=== PATIENT | male | born 1990 | race Caucasian/White ===

== ENCOUNTER 2016-10-18 14:58 | Emergency (ER) | payer SELFPAY ==
[2016-10-18] MEDS ORDERED: ONDANSETRON 4 MG/2 ML VIAL ONE (15:22)
[2016-10-18] MEDS: ONDANSETRON 4 MG/2 ML VIAL IVP ONE (15:28)
[2016-10-18] MEDS: NS 1,000 ML IV ONE (15:28)
[2016-10-18 15:29] LABS: ADD DIFF? NO; ADD MORPH? NO; ADD SCAN? NO; ATYPICAL LYMPHOCYTE FLAG 0 (0-99); FRAGMENT RBC FLAG 0 (0-99); HEMATOCRIT 51.2 % (40.0-51.0); HEMOGLOBIN 17.7 g/dL (13.7-17.5); LEFT SHIFT FLG 0 (0-99); LIPEMIA HEMOLYSIS FLAG 90 (0-99); MEAN CELL HEMOGLOBIN 31.9 pg (27.9-34.1); MEAN CELL HEMOGLOBIN CONCENTR. 34.6 g/dL (32.4-36.7); MEAN CELL VOLUME 92.3 fL (81.5-99.8); MEAN PLATELET VOLUME 9.4 fL (8.7-11.7); PLATELET CLUMPS FLAG 0 (0-99); PLATELET COUNT 277 10^3/uL (150-400); RED BLOOD CELL COUNT 5.55 10^6/uL (4.40-6.38); RED CELL DISTRIBUTION WIDTH 13.3 % (11.5-15.2)
--- NOTE | 2016-10-18 15:34 | EDPHY ---
H & P Time Seen by Provider: 10/18/16 15:15 HPI/ROS: Chief complaint. Nausea vomiting diarrhea HPI. 26-year-old male diarrhea off and on for 10 days. No recent travel. Occasional nausea vomiting. Occasional epigastric pain when he throws up. No radiation of his discomfort. No chest discomfort shortness of breath. No fever. History stomach problems ROS Constitutional. no fever/chills, no weakness Eyes. no problems with vision ENT. no sore throat, no nasal drainage Cardiovascular. no chest pain Respiratory. no shortness of breath, no cough Abdominal. Occasional abdominal pain with nausea vomiting and diarrhea . no problems urinating MS. no calf pain/swelling, no neck/back pain, no joint pain Skin. no rash Lymph. no swollen glands Neuro. no headache, no dizziness, no difficulty walking or with speech Past Medical/Surgical History: Healthy Social History: Single, daily smoker, no alcohol Smoking Status: Heavy smoker Physical Exam: General Appearance: Alert well-developed male mild distress vital signs show initial heart rate 120 Eyes: Pupils equal and round no pallor or injection. ENT, Mouth: Mucous membranes are moist. Respiratory: There are no retractions, lungs are clear to auscultation. Cardiovascular: Regular rate and rhythm. Gastrointestinal: Abdomen is soft and nontender, no masses, bowel sounds normal. Neurological: Awake and alert, sensory and motor exams grossly normal. Skin: Warm and dry, no rashes. Musculoskeletal: Neck is supple nontender. Extremities symmetrical, full range of motion. Psychiatric: Patient is oriented X 3, there is no agitation. Constitutional: Initial Vital Signs Temperature (C) 36.8 C 10/18/16 15:06 Heart Rate 120 H 10/18/16 15:06 Respiratory Rate 18 10/18/16 15:06 Blood Pressure 132/86 H 10/18/16 15:06 O2 Sat (%) 98 10/18/16 15:06 O2 Delivery Mode Room Air Allergies/Adverse Reactions: No Known Allergies Allergy (Unverified 10/18/16 15:11) Home Medications: Medication Instructions Recorded NK [No Known Home Meds] 10/18/16 Medical Decision Making Procedures: IV normal saline. Imodium by mouth ED Course/Re-evaluation: Re-evaluation at 4:15 p.m.. Patient is stable. He feels he needs to be discharged as he has an important phone call to make. His labs are normal. He has had no vomiting or diarrhea in the emergency department. Patient and I discussed criteria for return importance of follow-up and further evaluation. He expresses understanding and agreement Differential Diagnosis: Likely gastroenteritis. I have considered infectious causes of diarrhea. No evidence for acute abdomen or pancreatitis - Data Points Laboratory Results: Laboratory Results 10/18/16 15:19 10/18/16 15:19 10/18/16 10/18/16 15:19 15:19 WBC 10.07 10^3/uL H 10^3/uL (3.80-9.50) RBC 5.55 10^6/uL 10^6/uL (4.40-6.38) Hgb 17.7 g/dL H g/dL (13.7-17.5) Hct 51.2 % H % (40.0-51.0) MCV 92.3 fL fL (81.5-99.8) MCH 31.9 pg pg (27.9-34.1) MCHC 34.6 g/dL g/dL (32.4-36.7) RDW 13.3 % % (11.5-15.2) Plt Count 277 10^3/uL 10^3/uL (150-400) MPV 9.4 fL fL (8.7-11.7) Neut % (Auto) 64.5 % % (39.3-74.2) Lymph % (Auto) 25.2 % % (15.0-45.0) [place] % (Auto) 8.2 % % (4.5-13.0) Eos % (Auto) 0.7 % % (0.6-7.6) Baso % (Auto) 0.4 % % (0.3-1.7) Nucleat RBC Rel Count 0.0 % % (0.0-0.2) Absolute Neuts (auto) 6.49 10^3/uL 10^3/uL (1.70-6.50) Absolute Lymphs (auto) 2.54 10^3/uL 10^3/uL (1.00-3.00) Absolute Monos (auto) 0.83 10^3/uL H 10^3/uL (0.30-0.80) Absolute Eos (auto) 0.07 10^3/uL 10^3/uL (0.03-0.40) Absolute Basos (auto) 0.04 10^3/uL 10^3/uL (0.02-0.10) Absolute Nucleated RBC 0.00 10^3/uL 10^3/uL (0-0.01) Immature Gran % 1.0 % % (0.0-1.1) Immature Gran # 0.10 10^3/uL 10^3/uL (0.00-0.10) Sodium 140 mEq/L mEq/L (134-144) Potassium 4.4 mEq/L mEq/L (3.5-5.2) Chloride 101 mEq/L mEq/L (97-110) Carbon Dioxide 27 mEq/l mEq/l (22-31) Anion Gap 12 mEq/L mEq/L (8-16) BUN 21 mg/dL mg/dL (7-23) Creatinine 0.9 mg/dL mg/dL (0.7-1.3) Estimated GFR > 60 Glucose 76 mg/dL mg/dL (70-100) Calcium 10.3 mg/dL mg/dL (8.5-10.4) Lipase 81.0 IU/L IU/L (23-300) Medications Given: Discontinued Medications Sodium Chloride (Ns) 1,000 mls @ 0 mls/hr IV ONCE ONE PRN Reason: Wide Open Stop: 10/18/16 15:24 Last Admin: 10/18/16 15:28 Dose: 1,000 mls Loperamide HCl (Imodium) 4 mg PO EDNOW ONE Stop: 10/18/16 15:45 Last Admin: 10/18/16 15:48 Dose: 4 mg Ondansetron HCl (Zofran) 4 mg IVP EDNOW ONE Stop: 10/18/16 15:24 Last Admin: 10/18/16 15:28 Dose: 4 mg Departure - Departure Disposition: Home, Routine, Self-Care Clinical Impression: Diarrhea Qualifiers: Diarrhea type: unspecified type Qualified Code(s): R19.7 - Diarrhea, unspecified Condition: Good Instructions: Loperamide (By mouth), Acute Diarrhea (ED) Additional Instructions: Drink plenty of fluids and stay hydrated. Imodium (loperamide) may be purchased at the grocery store without prescription an works well for diarrhea. Return for worsening symptoms. Recheck in 3-4 days if not improving Referrals: NONE *PRIMARY CARE P,. [Primary Care Provider] - As per Instructions [facility] [Outside] - 3-4 days, if not improved
[2016-10-18] MEDS: LOPERAMIDE HCL 2 MG CAP PO ONE (15:48)
[2016-10-18 15:55] LABS: ANION GAP 12 mEq/L (8-16); CALCIUM 10.3 mg/dL (8.5-10.4); CARBON DIOXIDE 27 mEq/l (22-31); CHLORIDE 101 mEq/L (97-110); CREATININE 0.9 mg/dL (0.7-1.3); GLOMERULAR FILTRATION RATE > 60; GLUCOSE 76 mg/dL (70-100); POTASSIUM 4.4 mEq/L (3.5-5.2); SODIUM 140 mEq/L (134-144)
[2016-10-18 16:18] VITALS: BP 132/94; PULSE 97; RESP 16; TEMP 98.1; O2SAT 96
== END 2016-10-18 16:23 | disposition home or self-care (01) ==
DX: R19.7 Diarrhea, unspecified (principal); F17.200 Nicotine dependence, unspecified, uncomplicated
CPT/HCPCS: 96374; J2405

== ENCOUNTER 2016-10-23 20:43 | Emergency (ER) | payer SELFPAY ==
[2016-10-23 20:51] VITALS: O2SAT 95
[2016-10-23] MEDS ORDERED: LIDOCAINE 2% VISCOUS 15 ML UDCUP PO ONE (21:05)
[2016-10-23] MEDS ORDERED: MAG HYDROX/AL HYDROX/SIMETH 30 ML UDCUP PO ONE (21:05)
[2016-10-23] MEDS ORDERED: HYOSCYAMINE SULFATE 0.125 MG TAB PO ONE (21:05)
[2016-10-23] MEDS ORDERED: FAMOTIDINE 20 MG TAB PO ONE (21:05)
--- NOTE | 2016-10-23 21:06 | EDPHY ---
H & P Stated Complaint: N and int. x1 week, Hx of GERD as a kid, c/o abd "burning" Time Seen by Provider: 10/23/16 20:53 HPI/ROS: CHIEF COMPLAINT: Burn HISTORY OF PRESENT ILLNESS: The patient is a 26-year-old man who comes to the emergency department complaining of epigastric burning. He states that it feels like heartburn but that he occasionally vomits. He has also had intermittent diarrhea over the last 2 weeks. He was seen here 5 days ago with similar symptoms. He had lab work that was unremarkable and he felt better after Imodium and Zofran. he states that he Does still occasionally have diarrhea but that is not his main concern. His symptoms are worse after eating. No blood in his vomit or stool. REVIEW OF SYSTEMS: Constitutional: denies: chills, fever, recent illness, recent injury EENTM: denies: blurred vision, double vision, nose congestion Respiratory: denies: cough, shortness of breath Cardiac: denies: chest pain, irregular heart rate, lightheadedness, palpitations Gastrointestinal/Abdominal: See HPI Genitourinary: denies: dysuria, frequency, hematuria, pain Musculoskeletal: denies: joint pain, muscle pain Skin: denies: lesions, rash, jaundice, bruising Neurological: denies: headache, numbness, paresthesia, tingling, dizziness, weakness Hematologic/Lymphatic: denies: blood clots, easy bleeding, easy bruising Immunologic/allergic: denies: HIV/AIDS, transplant EXAM: GENERAL: Well-appearing, well-nourished and in no acute distress. HEAD: Atraumatic, normocephalic. EYES: Pupils equal round and reactive to light, extraocular movements intact, sclera anicteric, conjunctiva are normal. ENT: TMs normal, nares patent, oropharynx clear without exudates. Moist mucous membranes. NECK: Normal range of motion, supple without lymphadenopathy or JVD. LUNGS: Breath sounds clear to auscultation bilaterally and equal. No wheezes rales or rhonchi. HEART: Regular rate and rhythm without murmurs, rubs or gallops. ABDOMEN: Moderate epigastric pain, no tenderness, he states that palpation makes him feel like he needs to vomit. BACK: No CVA tenderness, no spinal tenderness, step-offs or deformities EXTREMITIES: Normal range of motion, no pitting or edema. No clubbing or cyanosis. NEUROLOGICAL: Cranial nerves II through XII grossly intact. Normal speech, normal gait. 5/5 strength, normal movement in all extremities, normal sensation PSYCH: Normal mood, normal affect. SKIN: Warm, dry, normal turgor, no visible rashes or lesions. Source: Patient Exam Limitations: No limitations - Personal History Current Tetanus/Diphtheria Vaccine: Yes Current Tetanus Diphtheria and Acellular Pertussis (TDAP): Yes Tetanus Vaccine Date: 2015 - Medical/Surgical History Hx Asthma: No Hx Chronic Respiratory Disease: No Hx Diabetes: No Hx Cardiac Disease: No Hx Renal Disease: No Hx Cirrhosis: No Hx Alcoholism: No Hx HIV/AIDS: No Hx Splenectomy or Spleen Trauma: No Other PMH: GERD - Family History Significant Family History: No pertinent family hx - Social History Smoking Status: Heavy smoker Alcohol Use: Sober Drug Use: None Constitutional: Initial Vital Signs Heart Rate 111 H 10/23/16 20:49 Respiratory Rate 16 10/23/16 20:49 Blood Pressure 159/102 H 10/23/16 20:49 O2 Sat (%) 95 10/23/16 20:49 O2 Delivery Mode Room Air Allergies/Adverse Reactions: No Known Allergies Allergy (Unverified 10/18/16 15:11) Home Medications: Medication Instructions Recorded Famotidine [Pepcid 20 MG (OTC)] 20 mg PO BID #30 tab 10/23/16 Medical Decision Making ED Course/Re-evaluation: We discussed options for workup. The patient requests not to perform any lab work or imaging studies initially but to try treating him for heartburn and see if this improves his symptoms. He is concerned about cost. 9:45 p.m. the patient feels completely better after GI cocktail and Pepcid. He is asking for prescription of Pepcid. Recommended he take antacids as needed for acute symptoms. He agrees with this plan and declines further workup or testing. Have him follow up with his PCP. Differential Diagnosis: Partial list of the Differential diagnosis considered include but were not limited to; peptic ulcer disease, GERD and although unlikely based on the history and physical exam, I also considered perforation, biliary disease, pancreatic disease, appendicitis. I discussed these differential diagnoses and the plan with the patient as well as the usual and expected course. The patient understands that the diagnosis is provisional and that in medicine we are not always correct and that further workup is often warranted. Usual and customary warnings were given. All of the patient's questions were answered. The patient was instructed to return to the emergency department should the symptoms at all worsen or return, otherwise to followup with the physician as we discussed. - Data Points Medications Given: Discontinued Medications Al Hydroxide/Mg Hydroxide (Maalox Susp) 30 ml PO ONCE ONE Stop: 10/23/16 21:06 Last Admin: 10/23/16 21:14 Dose: 30 ml Famotidine (Pepcid) 20 mg PO EDNOW ONE Stop: 10/23/16 21:06 Last Admin: 10/23/16 21:13 Dose: 20 mg Hyoscyamine Sulfate (Levsin, Hyomax-Sl) 0.25 mg PO ONCE ONE Stop: 10/23/16 21:06 Last Admin: 10/23/16 21:13 Dose: 0.25 mg Lidocaine (Lidocaine 2% Viscous) 15 ml PO ONCE ONE Stop: 10/23/16 21:06 Last Admin: 10/23/16 21:14 Dose: 15 ml Departure - Departure Disposition: Home, Routine, Self-Care Clinical Impression: GERD (gastroesophageal reflux disease) Qualifiers: Esophagitis presence: esophagitis presence not specified Qualified Code(s): K21.9 - Gastro-esophageal reflux disease without esophagitis Condition: Good Instructions: Gastroesophageal Reflux Disease (ED) Referrals: Jc George MD [Medical Doctor] - As per Instructions Prescriptions: Famotidine [Pepcid 20 MG (OTC)] 20 mg PO BID #30 tab
[2016-10-23 22:03] VITALS: BP 146/87; PULSE 90; RESP 18; TEMP 97.9
== END 2016-10-23 22:04 | disposition home or self-care (01) ==
DX: K21.9 Gastro-esophageal reflux disease without esophagitis (principal); F17.200 Nicotine dependence, unspecified, uncomplicated

== ENCOUNTER 2016-11-23 09:46 | Emergency (ER) | payer SELFPAY ==
[2016-11-23 09:53] VITALS: BP 158/102; PULSE 122; RESP 20; TEMP 97.7; O2SAT 96
[2016-11-23] MEDS ORDERED: LIDOCAINE 2% VISCOUS 15 ML UDCUP PO ONE (09:58)
[2016-11-23] MEDS ORDERED: MAG HYDROX/AL HYDROX/SIMETH 30 ML UDCUP PO ONE (09:58)
[2016-11-23] MEDS ORDERED: ONDANSETRON DISINTEGRATING 4 MG TAB PO ONE (09:58)
[2016-11-23] MEDS ORDERED: FAMOTIDINE 20 MG TAB PO ONE (09:58)
--- NOTE | 2016-11-23 10:04 | EDPHY ---
H & P Stated Complaint: n/v seen 3 times for same/rx pepcid and is out of it Time Seen by Provider: 11/23/16 09:54 HPI/ROS: Chief Complaint: Epigastric pain HPI: 26-year-old male with a history of GERD presenting complaining of epigastric pain. Patient states he continued to have some prescriptions for Pepcid but he ran out. Pain has been worse the last 2 days. Last Augmentin 3 days ago. No nausea or vomiting. No diarrhea. No he melena or hematochezia. Patient is not aware that these medications are available [id number]. Has not followed up with primary care physician or a GI doctor. I ROS: 10 point Review of Systems is negative except as noted in the HPI. PMH: GERD Medications: Famotidine Allergies: No known drug allergies Social History: No smoking, no alcohol, no recreational drug use Family History: non-contributory Physical Exam: Gen: Awake, Alert, No Distress HEENT: Nose: no rhinorrhea Eyes: PERRLA, EOMI Mouth: Moist mucosa Neck: Supple, no JVD Chest: nontender, lungs clear to auscultation Heart: S1, S2 normal, no murmur Abd: Soft, mild epigastric tenderness, no guarding Back: no CVA tenderness, no midline tenderness Ext: no edema, non-tender Skin: no rash Neuro: CN II-XII intact, Sensation grossly intact, Strength 5/5 in bilateral upper and lower extremities - Personal History Current Tetanus/Diphtheria Vaccine: Yes Tetanus Vaccine Date: 2015 - Medical/Surgical History Hx Asthma: No Hx Chronic Respiratory Disease: No Hx Diabetes: No Hx Cardiac Disease: No Hx Renal Disease: No Hx Cirrhosis: No Hx Alcoholism: No Hx HIV/AIDS: No Hx Splenectomy or Spleen Trauma: No Other PMH: GERD - Social History Smoking Status: Heavy smoker Constitutional: Initial Vital Signs Temperature (C) 36.5 C 11/23/16 09:50 Heart Rate 122 H 11/23/16 09:50 Respiratory Rate 20 11/23/16 09:50 Blood Pressure 158/102 H 11/23/16 09:50 O2 Sat (%) 96 11/23/16 09:50 O2 Delivery Mode Room Air Allergies/Adverse Reactions: No Known Allergies Allergy (Verified 11/23/16 09:49) Home Medications: Medication Instructions Recorded Famotidine [Pepcid 20 MG (OTC)] 20 mg PO BID #30 tab 10/23/16 Medical Decision Making ED Course/Re-evaluation: Patient with epigastric pain history of GERD. Symptoms resolve the GI cocktail and Zofran. Will discharge with instructions to take [id number] famotidine. Patient will follow up with primary care as needed. - Data Points Medications Given: Discontinued Medications Al Hydroxide/Mg Hydroxide (Maalox Susp) 30 ml PO ONCE ONE Stop: 11/23/16 09:59 Last Admin: 11/23/16 10:06 Dose: 30 ml Famotidine (Pepcid) 20 mg PO EDNOW ONE Stop: 11/23/16 09:59 Last Admin: 11/23/16 10:06 Dose: 20 mg Lidocaine (Lidocaine 2% Viscous) 15 ml PO ONCE ONE Stop: 11/23/16 09:59 Last Admin: 11/23/16 10:06 Dose: 15 ml Ondansetron HCl (Zofran Odt) 4 mg PO EDNOW ONE Stop: 11/23/16 09:59 Last Admin: 11/23/16 10:06 Dose: 4 mg Departure - Departure Disposition: Home, Routine, Self-Care Clinical Impression: GERD (gastroesophageal reflux disease) Condition: Good Instructions: Gastroesophageal Reflux Disease (ED) Additional Instructions: You may take Famotidine [id number] per package instructions for your reflux. Follow up with primary care physician in 3-4 days for re-evaluation. Referrals: NONE *PRIMARY CARE P,. [Primary Care Provider] - As per Instructions Martha Cruz MD [Doctor of Osteopathy] - As per Instructions Stand Alone Forms: Work Excuse
== END 2016-11-23 10:43 | disposition home or self-care (01) ==
DX: K21.9 Gastro-esophageal reflux disease without esophagitis (principal); F17.200 Nicotine dependence, unspecified, uncomplicated

== ENCOUNTER 2016-12-11 06:12 | Emergency (ER) | payer SELFPAY ==
[2016-12-11 06:23] VITALS: BP 162/95; PULSE 88; RESP 16; TEMP 98.4; O2SAT 97
[2016-12-11] MEDS ORDERED: PROPARACAINE 0.5% 15 ML OPHT DROP OP ONE (06:33)
[2016-12-11] MEDS ORDERED: FLUORESCEIN SODIUM 1 MG STRIP OP ONE (06:33)
[2016-12-11] MEDS ORDERED: CIPROFLOXACIN 0.3% DROPS PREPACK OPHT.BTL TAKEHOME ONE (06:58)
[2016-12-11] MEDS ORDERED: CIPROFLOXACIN OP ONE (06:58)
--- NOTE | 2016-12-11 07:00 | EDPHY ---
H & P Stated Complaint: c/o pain/irritation in L eye x 2 days, no known inj/fb HPI/ROS: HPI The patient presents with left eye pain which has been present for the last 2 days which started after he got out of the shower and was rubbing his left eye. He describes the pain as irritation, it is worse with blinking, it is mild in severity. It is associated with some redness of the eye, he does not have any photophobia or vision changes. He does not wear contacts. His eye has been tearing. REVIEW OF SYSTEMS Constitutional: No fever, no chills. Eyes: See HPI Skin: No rashes. Neurological: No headache. PMHx: Healthy Soc Hx: In a work release program PHYSICAL General Appearance: Alert, no distress EYE EXAM Visual Acuity: noted from Nurse's notes. Pupils: equal round and reactive to light EOMI Skin: no proptosis, no periorbital erythema or swelling, no vesicles Conjunctivae: Mild diffuse injection Cornea: exam with fluoroscein shows 2 mm circular area of uptake in the inferior portion of the iris Anterior chamber:normal, no hyphema or hypopyon ENT, Mouth: Mucous membranes moist Respiratory: Breathing comfortably Neurological: A&O, moves all extremities Skin: Warm and dry, no rashes Musculoskeletal: Neck is supple non tender Extremities: symmetrical, full range of motion Psychiatric: Patient is oriented X 3, there is no agitation Source: Patient Exam Limitations: No limitations - Personal History Tetanus Vaccine Date: 2015 - Medical/Surgical History Hx Asthma: No Hx Chronic Respiratory Disease: No Hx Diabetes: No Hx Cardiac Disease: No Hx Renal Disease: No Hx Cirrhosis: No Hx Alcoholism: No Hx HIV/AIDS: No Hx Splenectomy or Spleen Trauma: No Other PMH: GERD - Social History Smoking Status: Heavy smoker Constitutional: Initial Vital Signs Temperature (C) 36.9 C 12/11/16 06:21 Heart Rate 88 12/11/16 06:21 Respiratory Rate 16 12/11/16 06:21 Blood Pressure 162/95 H 12/11/16 06:21 O2 Sat (%) 97 12/11/16 06:21 O2 Delivery Mode Room Air Allergies/Adverse Reactions: No Known Allergies Allergy (Verified 12/11/16 06:23) Home Medications: Medication Instructions Recorded Famotidine [Pepcid 20 MG (OTC)] 20 mg PO BID #30 tab 10/23/16 Medical Decision Making Differential Diagnosis: This is a 26-year-old healthy male who presents with 2 days of left-sided eye pain after rubbing his eye. On exam, he has fluorescein uptake in a small area consistent with a corneal abrasion. I have also considered corneal ulcer, however examination is not suggestive of this. Eyelid foreign body is also consideration, however his upper eyelid does not demonstrate any foreign body. I plan to discharge him with ciprofloxacin eye drops as prophylaxis. I have given him information for Ophthalmology for follow-up as needed. - Data Points Medications Given: Discontinued Medications Fluorescein Sodium ([id number]-[id number]-[id number]) 1 mg OP EDNOW ONE Stop: 12/11/16 06:34 Last Admin: 12/11/16 06:50 Dose: 1 mg Proparacaine HCl (Alcaine 0.5%) 1 drops OP EDNOW ONE Stop: 12/11/16 06:34 Last Admin: 12/11/16 06:51 Dose: 1 drop Departure - Departure Disposition: Home, Routine, Self-Care Clinical Impression: Corneal abrasion Qualifiers: Encounter type: initial encounter Laterality: left Qualified Code(s): S05.02XA - Injury of conjunctiva and corneal abrasion without foreign body, left eye, initial encounter Condition: Good Instructions: Corneal Abrasion (ED) Additional Instructions: Please use the antibiotic to prevent any infection from occurring. If you are not better in the next 1-2 days, I have given you information for the flea market seller to follow up with. Referrals: Ravi Sanchez MD [Medical Doctor] - As per Instructions
== END 2016-12-11 07:11 | disposition home or self-care (01) ==
DX: S05.02XA Injury of conjunctiva and corneal abrasion without foreign body, left eye, initial encounter (principal); F17.200 Nicotine dependence, unspecified, uncomplicated; X58.XXXA Exposure to other specified factors, initial encounter